=== PATIENT | female | born 1990 | race Hispanic/Latino ===

== ENCOUNTER → 2024-05-14 | Outpatient (CLI) | payer MEDICAID ==
[2024-05-14 10:17] LABS: BASOPHILS # (AUTO) 0.02 K/uL (0.00-0.20); BASOPHILS % (AUTO) 0.3 % (0.0-5.0); EOSINOPHILS # (AUTO) 0.18 K/uL (0.00-0.70); EOSINOPHILS % (AUTO) 2.6 % (0.0-8.0); HEMATOCRIT 39.4 % (36-48); IMMATURE GRANULOCYTE ABSOLUTE 0.03 K/uL (0-1); LYMPHOCYTES # (AUTO) 2.1 K/uL (1.0-4.8); LYMPHOCYTES % (AUTO) 29.4 % (21.0-51.0); MEAN CORPUSCULAR HEMOGLOBIN 24.2 pg (27.0-33.0); MEAN CORPUSCULAR HGB CONC 32.2 g/dL (32.0-36.0); MEAN CORPUSCULAR VOLUME 75.2 fL (79-99); MONOCYTES # (AUTO) 0.3 K/uL (0.1-1.0); MONOCYTES % (AUTO) 4.1 % (3.0-13.0); NEUTROPHILS # (AUTO) 4.4 K/uL (1.8-7.7); NEUTROPHILS % (AUTO) 63.2 % (40.0-77.0); PLATELET COUNT (AUTO) 253 K/uL (130-400); RED BLOOD CELL COUNT(AUTO) 5.24 MIL/uL (4.00-5.50); RED CELL DISTRIBUTION WIDTH 15.9 % (11.0-15.5)
[2024-05-14 10:27] LABS: HEMOGLOBIN A1C 9.9 % (4.0-6.0)
[2024-05-14 10:33] LABS: % IRON SATURATION 7.1 % (22-44)
[2024-05-14 10:57] LABS: ALBUMIN 3.3 g/dL (3.5-5.0); BILIRUBIN,TOTAL 0.2 mg/dL (0.2-1.0); CREATININE 0.5 mg/dL (0.5-1.0); POTASSIUM 3.7 mmol/L (3.5-5.1); THYROID STIMULATING HORMONE 0.8 uIU/mL (0.36-3.74); TOTAL PROTEIN, SERUM 7.7 g/dL (6.0-8.3)
== END | disposition home or self-care (01) ==
LOC: LAB 09:27
PROVIDERS: ATTEND Student in an Organized Health Care Education/Training Program
DX: E66.01 Morbid (severe) obesity due to excess calories (principal)
CPT/HCPCS: 36415; 80053; 80061; 82306; 82607; 82728; 83036; 83540; 83550; 84439; 84443; 84590; 85025

== ENCOUNTER → 2024-05-14 | Outpatient (CLI) | payer MEDICAID, OTHER ==
[~2024-05-14] VITALS: Ht 5.1 cm; Wt 98.0 kg
--- NOTE | 2024-05-14 12:19 | NUR ---
BARIATRIC INITIAL ASSESSMENT VISIT 1 OF 6 Wt: 216 lbs DOS: 05/14/24 Pt seeking bariatric procedure to aid in wt loss and improve medical health conditions. Pt reported she takes vit. D prescription, on brith control, no T2DM medication, brother and sister in law got procedure, struggled with wt since 13 yrs old, has tried diet + exercise to lose wt, dad's side struggle with wt, has 3 children, 2 are picky eaters, dx with T2DM last month, no BG checks, does not know last A1C result, has been seeing PCP more often, barely got medicaid, eats ~2 meals per day, rarely snacks, consumes soda 1 x per day, sweets 1x per day, fast food 3x per week, takes 10 min to eat, does not struggle with emotional eating or stress eating, does not struggle with anxiety or depression, plans to become in a few years, does not work, does not travel often, patient does the most cooking, has means to purchase healthy food with no issue, sleeps ~6 hrs per day, is able to exercise, does not exercise, goal wt of 150 lbs within [address] conducted 24 hr recall: Breakfast: skips Lunch: burger + fries + fruit punch drink Dinner: steak + entomatadas Snack(s): donut holes (4) RD reviewed portion sizes with pt, reviewed healthy plate, informed Pt of importance of protein intake, demonstrated DM chart, reviewed carbohydrate sources and carbohydrate counting, provided and an estimate for estimated carbohydrate intake per day. Pt completed wt management program diet readiness questionnaire. Results are as follows: Section 1: Goals and Attitudes. Score of 21. You may be close to being ready to begin a program but should think about ways to boost your preparedness before you begin. Sections 2: Hunger and Eating cues. Score 7. You may have a moderate tendency to eat just because food is available. Dieting may be easier for you if you try to resist external cues and eat only when you are physically hungry. Section 3: Control over Eating. Score 6. You recover rapidly from mistakes. However, if you frequently alternate between eating out of control and dieting strictly, you may have a serious eating problem and should get professional help. Section 4: Kiera Eating and Purging: Score 0. It appears that binge eating, and purging is not a problem for you. Section 5: Emotional Eating: Score 7. You do not appear to let your emotions affect your eating. Section 6: Exercise Patterns and Attitudes: Score 10. You are probably not exercising as regularly as you should. Determine whether your attitudes about exercise are blocking your way, then change what you must and put on those walking shoes. Goals Established: -MVI QD -decrease carbonation -walking 10 min 2x per week Pt in agreement with goals and is aware she will need to cut carbonated beverages, sweets and caffeine prior to surgery. Recommended for Pt to complete visits with Dietitian to prepare for bariatric procedure. Thank you for this visit. Addendum: 05/14/24 at [address] Amended: Links added.
== END | disposition home or self-care (01) ==
LOC: DTH 09:30
PROVIDERS: ATTEND Surgery
DX: I10 Essential (primary) hypertension (principal); M19.91 Primary osteoarthritis, unspecified site; K21.9 Gastro-esophageal reflux disease without esophagitis; E66.01 Morbid (severe) obesity due to excess calories; E11.9 Type 2 diabetes mellitus without complications; Z68.39 Body mass index [BMI] 39.0-39.9, adult; Z71.3 Dietary counseling and surveillance
CPT/HCPCS: 97802

== ENCOUNTER → 2024-06-04 | Outpatient (CLI) | payer OTHER ==
--- NOTE | 2024-06-04 09:47 | NUR ---
BARIATRIC FOLLOW UP NOTE VISIT 2 OF 6 Wt: 218 LBS DOS: 06/04/24 Upon follow up visit, pt presents with a 2 lb wt gain. Pt reported she recently got , water training, no MVI QD, cut down on soda, no SF products, no protein supplements, walking 15 min 3x per week, is going to set up an appointment with PCP, continues with vit. D prescription. RD conducted 24 hr food recall. Breakfast: eggs+ beans + sausage + toast+ orange juice Lunch: skipped Dinner: green pozole with chicken no snacks RD reviewed simple CHO and complex CHO intake, discussed labs, encouraged pt to decrease soft drink (even sugar free) consumption secondary to carbonation and caffeine, pt verbalized understanding. RD and pt established goals for next month: -no skipping meals -protein supplement qd -walking 25 min 3x per week Thank you for this visit Addendum: 06/04/24 at [address] Amended: Links added.
== END | disposition home or self-care (01) ==
LOC: EDUNIT# 09:00 → DTH 09:09
PROVIDERS: ATTEND Surgery
DX: E66.01 Morbid (severe) obesity due to excess calories (principal); I10 Essential (primary) hypertension; M19.91 Primary osteoarthritis, unspecified site; K21.9 Gastro-esophageal reflux disease without esophagitis; E11.9 Type 2 diabetes mellitus without complications
CPT/HCPCS: 97803

== ENCOUNTER → 2024-07-02 | Outpatient (CLI) | payer OTHER ==
--- NOTE | 2024-07-02 10:05 | NUR ---
BARIATRIC FOLLOW UP NOTE VISIT 3 OF 6 Wt: 216 LBS DOS: 07/02/24 Upon follow up visit, pt presents with a 2 lb wt loss. Pt with MVI QD, protein shakes, talked to PCP about labs, on vit. D prescribed, on metformin 1000mg, no BG checks, walking 1 x per week for 1 hr, decreased soda, water training, had not received information on T2DM, will look into SF tea options. RD conducted 24 hr food recall. Breakfast: skipped Lunch: fajita + brisk tea Dinner: lasagna + salad + brisk tea RD reviewed T2DM friendly snacks, discussed different SF beverages, discussed ways to lower BG levels, encouraged Pt to check BG, informed Pt on risks of uncontrolled T2DM , encouraged pt to decrease soft drink (even sugar free) consumption secondary to carbonation and caffeine, pt verbalized understanding. RD and pt established goals for next month: -all SF beverages -continue MVI QD -walking 2x per week for 1 hr Thank you for this visit Addendum: 07/02/24 at [address] Amended: Links added.
== END | disposition home or self-care (01) ==
LOC: EDUNIT# 09:00 → DTH 09:19
PROVIDERS: ATTEND Surgery
DX: E66.09 Other obesity due to excess calories (principal); I10 Essential (primary) hypertension; E11.9 Type 2 diabetes mellitus without complications; G47.33 Obstructive sleep apnea (adult) (pediatric); M19.91 Primary osteoarthritis, unspecified site; K21.9 Gastro-esophageal reflux disease without esophagitis; R63.4 Abnormal weight loss; Z71.3 Dietary counseling and surveillance; Z68.39 Body mass index [BMI] 39.0-39.9, adult
CPT/HCPCS: 97803

== ENCOUNTER → 2024-08-15 | Outpatient (CLI) | payer OTHER ==
--- NOTE | 2024-08-15 09:55 | NUR ---
BARIATRIC FOLLOW UP NOTE VISIT 4 OF 6 Wt: 213 LBS DOS: 08/15/24 Upon follow up visit, pt presents with a 3 lb wt loss. Pt with MVI QD, A1C 9, prescribed medication to stop sugar cravings, cut off carbonation, started using SF products, with MVI QD + prescribed vit. D, no exercise, just came back from vacation, did not expect wt loss, has had diarrhea for [address] conducted 24 hr food recall. Breakfast: skipped Lunch: protein shake Dinner: wings RD reviewed protein, calcium and vit. D, encouraged Pt to exercise and increase color in meals, reviewed protein,vit. D and calcium importance , encouraged pt to decrease soft drink (even sugar free) consumption secondary to carbonation and caffeine, pt verbalized understanding. RD and pt established goals for next month: -increase color in meals -walk 10 mins 3x per week -no skipping meals Thank you for this visit Addendum: 08/15/24 at [address] Amended: Links added.
== END ==
LOC: EDUNIT# 07-30 09:00 → DTH 09:11
PROVIDERS: ATTEND Surgery
DX: E66.09 Other obesity due to excess calories (principal); I10 Essential (primary) hypertension; E11.9 Type 2 diabetes mellitus without complications; G47.33 Obstructive sleep apnea (adult) (pediatric); M19.91 Primary osteoarthritis, unspecified site; K21.9 Gastro-esophageal reflux disease without esophagitis; Z68.39 Body mass index [BMI] 39.0-39.9, adult; Z71.3 Dietary counseling and surveillance
CPT/HCPCS: 97803

== ENCOUNTER → 2024-09-11 | Outpatient (CLI) | payer OTHER ==
--- NOTE | 2024-09-11 16:13 | NUR ---
BARIATRIC FOLLOW UP NOTE VISIT 5 OF 6 Wt: 210 LBS DOS: 09/11/24 Upon follow up visit, pt presents with a 3 lb wt loss. Pt reported she started a new medication and gets diarrhea right after eating, has a PCP visit next week, needs refill for vit. D prescription, has been trying protein supplements, does not check BG, no exercise due to it being too hot outside, MVI QD. RD conducted 24 hr food recall. Breakfast: skipped Lunch: chicken breast + rice + water Dinner: pork + beans + rice +water S: cucumber +jicama RD reviewed importance of vit.d and calcium, importance of protein, encouraged Pt to exercise indoors, discussed different ways to be more active, encouraged pt to decrease soft drink (even sugar free) consumption secondary to carbonation and caffeine, pt verbalized understanding. RD and pt established goals for next month: -continue MVI QD -walking 1x per week for ~20 mins -no skipping meals Thank you for this visit Addendum: 09/11/24 at [address] Amended: Links added.
== END | disposition home or self-care (01) ==
LOC: EDUNIT# 08-27 09:30 → DTH 15:23
PROVIDERS: ATTEND Surgery
DX: E66.09 Other obesity due to excess calories (principal); E66.3 Overweight; I10 Essential (primary) hypertension; E11.9 Type 2 diabetes mellitus without complications; M19.91 Primary osteoarthritis, unspecified site; K21.9 Gastro-esophageal reflux disease without esophagitis; G47.33 Obstructive sleep apnea (adult) (pediatric); Z68.39 Body mass index [BMI] 39.0-39.9, adult
CPT/HCPCS: 97803

== ENCOUNTER → 2024-10-15 | Outpatient (CLI) | payer MEDICAID ==
--- NOTE | 2024-10-15 10:36 | EKG ---
[facility] Test Date: 2024-10-15 Test Time: 10:11:52 Pat Name: BIRDIE CORBETT Department: LAB Room: Gender: F End [employer] Forming Department: [id number] : 1990 Requested By: FLOR NUÑEZ Order Number: [id number] Reading MD: Jame Powers Measurements Intervals [place] Rate: 65 P: 44 GA: 157 QRS: 44 QRSD: 90 T: 18 QT: 394 QTc: 410 Interpretive Statements Sinus rhythm No previous ECG available for comparison Electronically Signed On 10-15-2024 12:03:43 CDT by Jame Powers Please click the below link to view image of tracing.
[2024-10-15 10:42] LABS: IMMATURE GRANULOCYTE ABSOLUTE 0.02 K/uL (0-1); NUCLEATED RED BLOOD CELLS 0.0 % (0.0-0.19); PLATELET COUNT (AUTO) 247 K/uL (130-400); RED BLOOD CELL COUNT(AUTO) 4.31 MIL/uL (4.00-5.50); RED CELL DISTRIBUTION WIDTH 13.4 % (11.0-15.5); WHITE BLOOD COUNT (AUTO) 7.8 K/uL (4.8-10.8)
[2024-10-15 11:22] LABS: ASPARTATE AMINOTRANSFERASE 15 U/L (10-37); CREATININE 0.6 mg/dL (0.5-1.0); GLOMERULAR FILTR. RATE CALC 122 mL/min (>90); GLUCOSE,RANDOM 143 mg/dL (70-105); LDL DIRECT 90 mg/dL (0-99); SODIUM SERUM 137 mmol/L (136-145); TOTAL PROTEIN, SERUM 7.5 g/dL (6.0-8.3); UREA NITROGEN, BLOOD 9 mg/dL (7-18)
== END | disposition home or self-care (01) ==
LOC: LAB 09:27
PROVIDERS: ATTEND Surgery
DX: E66.01 Morbid (severe) obesity due to excess calories (principal); G47.33 Obstructive sleep apnea (adult) (pediatric); E11.9 Type 2 diabetes mellitus without complications; I10 Essential (primary) hypertension; M19.91 Primary osteoarthritis, unspecified site; Z68.30 Body mass index [BMI] 30.0-30.9, adult
CPT/HCPCS: 36415; 80053; 80061; 82306; 82607; 82746; 83036; 83540; 83735; 84207; 84425; 84436; 84443; 84446; 84481; 84590; 84630; 85025; 93005

== ENCOUNTER → 2024-10-15 | Outpatient (CLI) | payer OTHER ==
--- NOTE | 2024-10-15 10:44 | NUR ---
FOLLOW PRE-OP/POST-OP DIETARY RECOMMENDATIONS BARIATRIC PRE-OP VISIT VISIT 6 OF 6 Wt:206 lbs DOS: 10/15/24 Child present during visit. Upon follow up visit, pt presented with a 4 lb wt loss. Pt reported she will get procedure date this week, expected wt loss, cut off bread, soda, and sweets, MVI QD, has not purchased bariatric MVI, has been walking 15 min 2x per week. RD reviewed educational material for pre-op and post-op diet recommendations with detailed phases of diet post-op. Pt was informed of importance of lifelong vitamin/mineral supplementation, choosing protein first during meals (pt was educated on higher protein requirements), choosing low calorie, sugar free, carbonated free and caffeine beverages. RD also informed pt on lifelong commitment to exercise and dietary recommendations for optimal success post surgery. RD encouraged getting blood work every 3 to 6 months, including B-vitamins, Pt verbalized understanding. RD informed Pt on moving around after procedure to prevent DVT, Pt verbalized understanding. Pt was encouraged to contact RD as questions arise and to attend support groups. RD provided protein supplement recommendations along with Bariatric Vitamin recommendations via graphics to patient. Pt with several questions, all of which were answered. Fair to poor compliance suspected. Pt will benefit from outpatient bariatric dietitian follow up post procedure. Pt to follow up with PCP for labs. Thank you for this visit. Addendum: 10/15/24 at [address] Amended: Links added.
== END | disposition home or self-care (01) ==
LOC: EDUNIT# 09-24 09:00 → DTH 09:35
PROVIDERS: ATTEND Surgery
DX: G47.33 Obstructive sleep apnea (adult) (pediatric) (principal); E78.5 Hyperlipidemia, unspecified; M19.91 Primary osteoarthritis, unspecified site; I10 Essential (primary) hypertension; K21.9 Gastro-esophageal reflux disease without esophagitis; E66.01 Morbid (severe) obesity due to excess calories; E11.9 Type 2 diabetes mellitus without complications; Z68.32 Body mass index [BMI] 32.0-32.9, adult
CPT/HCPCS: 97803

== ENCOUNTER 2024-11-09 15:25 | Emergency (ER) | payer MEDICAID ==
[~2024-11-09] VITALS: Ht 160 cm; Wt 87.1 kg
[~2024-11-09 15:25] MED LIST: FERS325 PO; HYDR12.54 PO; LOSA50TA64 PO; METF-446 PO; MVIT PO; NORE-8 PO
[2024-11-09 15:27] VITALS: TEMP 98.2
[2024-11-09 16:16] LABS: IMMATURE GRANULOCYTE ABSOLUTE 0.03 K/uL (0-1); NUCLEATED RED BLOOD CELLS 0.0 % (0.0-0.19); PLATELET COUNT (AUTO) 292 K/uL (130-400); RED BLOOD CELL COUNT(AUTO) 4.63 MIL/uL (4.00-5.50); RED CELL DISTRIBUTION WIDTH 13.7 % (11.0-15.5); WHITE BLOOD COUNT (AUTO) 8.9 K/uL (4.8-10.8)
[2024-11-09 16:17] LABS: APPEARANCE,URINE CLEAR (CLEAR); GLUCOSE, URINE (UA) NEGATIVE (NEGATIVE); LEUKOCYTE ESTERASE ,URINE NEGATIVE Leu/uL (NEGATIVE); NITRATE,URINE NEGATIVE (NEGATIVE); OCCULT BLOOD,URINE NEGATIVE (NEGATIVE)
[2024-11-09 16:18] LABS: ADD UA MICROSCOPIC YES
[2024-11-09 16:21] LABS: SQUAMOUS EPITHELIAL CELL,UR FEW /HPF (0-2)
[2024-11-09 16:22] LABS: CREATININE 0.5 mg/dL (0.5-1.0); GLOMERULAR FILTR. RATE CALC 128.0 mL/min (>90); GLUCOSE,RANDOM 92.0 mg/dL (70-105); SODIUM SERUM 139.0 mmol/L (136-145); UREA NITROGEN, BLOOD 9.0 mg/dL (7-18)
[2024-11-09] MEDS: PoTASSium chl 10% ELIXIR 20MEQ 20 MEQ/15 ML UDCUP PO ONE ×2 (16:44→16:49)
--- NOTE | 2024-11-09 16:47 | NUR ---
POTASSIUM 2.7, 40 MEQ OF POTASSIUM ELIXIR GIVEN NOW
[2024-11-09] MEDS: 0.9%NACL 1000ML 1,000 ML IV ONE (17:32)
[2024-11-09] MEDS ORDERED: LEVO750T90 PO (17:38)
--- NOTE | 2024-11-09 17:38 | ERN ---
ED Note History of Present Illness Stated Complaint: SUTURE PROBLEM Chief Complaint: Wound Recheck/Suture Removal Time Seen by MD: 15:37 Dictation: This is a 34-year-old female who presented to the emergency room with complaints of bleeding from the site of surgery which started today. Patient underwent laparoscopic gastric sleeve surgery by Dr. Powers and was discharged on 11/07 2024. She has been recovering very well postoperatively and noticed today that from and a of 1 of the laparoscopic sites the right lateral abdominal wall was oozing blood. She denied any fever chills or rigors she basically came into the ER to get her surgical wound checked out Temperature 98.2 pulse 72 respirations 18 blood pressure 164/74 with a pulse oximetry of 99% on room air Her chronic medical problems include diabetes mellitus, hypertension and morbid obesity Allergies: Coded Allergies: Penicillins (Unverified Allergy, Unknown, 11/04/24) Home Meds Active Scripts Levofloxacin (Levofloxacin) 750 Mg Tablet, 1 TAB PO DAILY for 5 Days, #5 TAB 0 Refills Prov:ARIANA MELENDEZ MD 11/09/24 Reported Medications Hydrochlorothiazide (Hydrochlorothiazide) 12.5 Mg Tablet, 12.5 MG PO DAILY, TAB 11/04/24 Metformin HCl (Metformin HCl) 1,000 Mg Tablet, 1000 MG PO DAILY, TAB 11/04/24 Noreth A-Et Estra/Fe Fumarate (Lo Loestrin Fe 1-10 Tablet) 1MG-10(24) Tablet, 1 EACH PO HS, TAB 11/04/24 Multivitamins,Therapeutic (Multivitamin Tablet) 400 Mcg Tab, 1 TAB PO DAILY, TAB 11/04/24 Ferrous Sulfate (Ferrous Sulfate) 325 Mg (65 Mg Iron) Ectab, 325 MG PO DAILY, TAB.EC 11/04/24 Losartan Potassium (Losartan Potassium) 50 Mg Tablet, 50 MG PO DAILY, TAB 11/04/24 Discontinued Reported Medications Phentermine HCl (Phentermine HCl) 15 Mg Capsule, 15 MG PO DAILY, CAP 11/04/24 Past Medical History Past Medical History: Diabetes-Type II, Hypertension Surgical History: Other (Sleeve gastrectomy-laparoscopic October 2024) Family History: Negative Social History: Negative RN Note Reviewed/Agreed w/PFSH: Yes Review of System Dictation Constitutional: Negative for fever,chills, and weight loss Eyes: Negative for injury, pain,redness, and discharge ENT: Negative for injury,pain or swelling Cardiovascular: Negative for chest pain, palpitations, and edema Respiratory: Negative for shortness of breath, cough, and wheezing, Abdomen/GI: Negative for abdominal pain, nausea, vomiting, diarrhea, and constipation Back: Negative for injury and pain : Negative for injury, bleeding and discharge MS/Extremity: Negative for injury and deformity Skin: Negative for rash, and discoloration-drainage and bleeding from surgical wound Neuro: Negative for headache, weakness, numbness, tingling, and seizure Psych: Negative for suicide ideation, homicidal ideation, and hallucinations Initial Vital Sign VS Vital Signs Date Time Temp Pulse Resp B/P (MAP) Pulse Ox O2 Delivery O2 Flow Rate FiO2 11/09/24 15:27 98.2 72 18 164/74 99 11/09/24 18:00 Room Air* 0 21 Physical Exam Dictation General: awake, alert, NAD Head/Face: Normocephalic, atraumatic Eyes: PERRL, EOMI, vision at baseline ENT: oral cavity clear, TMs clear, no signs of infection Neck: Trachea midline, supple, no nuchal rigidity Cardiovascular: RRR, normal S1/S2, No MRGs, no JVD Respiratory: CTAB, no respiratory distress, No rales or wheezes Abdomen: Soft, non-tender, non-distended, normal bowel sounds, no guarding or rebound. Abdominal wall has multiple laparoscopic insertion sites which are healing at different stages. About 2 in surgical wound on the right lateral abdominal wall had a scab small amount of oozing and surrounding erythema and mild induration. Skin: Warm, dry, normal turgor, no rash MS/Extremity: Pulses equal, no cyanosis, neurovascular intact, FROM Neuro: COAx4, GCS 15, strength 5/5, CN 2-12 intact, normal cerebellar exam, normal gait, Psych: Normal behavior, mood, and affect normal Extremities-trace edema without any palpable cords, Homans sign is negative Results (Laboratory/Radiology) Laboratory/Radiology Laboratory Tests Test 11/09/24 16:00 11/09/24 16:07 Urine Color YELLOW (YELLOW) Urine Appearance CLEAR (CLEAR) Urine pH 6.5 (5.0-8.0) Urine Specific [place] 1.036 (1.001-1.031) Urine Protein 70 mg/dL (NEGATIVE) H Urine Glucose (UA) NEGATIVE mg/dL (NEGATIVE) Urine Ketones 150 mg/dL (NEGATIVE) H Urine Occult Blood NEGATIVE (NEGATIVE) Urine Nitrate NEGATIVE (NEGATIVE) Urine Bilirubin 1 mg/dL (NEGATIVE) H Urine Urobilinogen 4.0 mg/dL (0.2-1.0) H Urine Leukocyte Esterase NEGATIVE [place]/uL Urine RBC 0-1 /HPF (0-1) Urine WBC 0-1 /HPF (0-1) Urine Squamous Epithelial Cells FEW /HPF (0-2) Urine Bacteria RARE /HPF (None Seen) White Blood Count 8.9 K/uL (4.8-10.8) Red Blood Count 4.63 MIL/uL (4.00-5.50) Hemoglobin 13.9 g/dL (12.0-16.0) Hematocrit 39.3 % (36-48) Mean Corpuscular Volume 84.9 fL (79-99) Mean Corpuscular Hemoglobin 30.0 pg (27.0-33.0) Mean Corpuscular Hemoglobin Concent 35.4 g/dL (32.0-36.0) Red Cell Distribution Width 13.7 % (11.0-15.5) Platelet Count 292 K/uL (130-400) Mean Platelet Volume 11.0 fL (7.5-10.5) H Immature Granulocyte % (Auto) 0.3 % (0-1) Neutrophils (%) (Auto) 66.5 % (40.0-77.0) Lymphocytes (%) (Auto) 26.9 % (21.0-51.0) Monocytes (%) (Auto) 4.8 % (3.0-13.0) Eosinophils (%) (Auto) 1.2 % (0.0-8.0) Basophils (%) (Auto) 0.3 % (0.0-5.0) Neutrophils # (Auto) 5.9 K/uL (1.8-7.7) Lymphocytes # (Auto) 2.4 K/uL (1.0-4.8) Monocytes # (Auto) 0.4 K/uL (0.1-1.0) Eosinophils # (Auto) 0.11 K/uL (0.00-0.70) Basophils # (Auto) 0.03 K/uL (0.00-0.20) Absolute Immature Granulocyte (auto 0.03 K/uL (0-1) Nucleated Red Blood Cells 0.0 % (0.0-0.19) Sodium Level 139 mmol/L (136-145) Potassium Level 2.7 mmol/L (3.5-5.1) *L Chloride Level 104 mmol/L (101-111) Carbon Dioxide Level 25 mmol/L (21-32) Blood Urea Nitrogen 9 mg/dL (7-18) Creatinine 0.5 mg/dL (0.5-1.0) Glomerular Filtration Rate Calc 128 mL/min (>90) Random Glucose 92 mg/dL (70-105) Total Calcium 9.0 mg/dL (8.5-10.1) Labs Reviewed?: Yes ED Course ED Course Orders Procedure Category Date Status Time Cbc With Differential LAB 11/09/24 Complete 15:40 Basic Metabolic Panel LAB 11/09/24 Complete 15:40 Urinalysis Profile LAB 11/09/24 Complete 15:40 Potassium Chl 10% PHA 11/09/24 Complete Elixir 20meq (Kcl 10% 17:00 Potassium Chl 10% PHA 11/09/24 Complete Elixir 20meq (Kcl 10% 17:00 0.9%Nacl 1000ml (Ns PHA 11/09/24 Complete 1000ml) 17:30 Morphine 4mg Syg PHA 11/09/24 Complete (Morphine 4mg Syg) 18:00 Levofloxacin 750mg PHA 11/09/24 In Process Tab (Levaquin 750mg T 18:00 Current Medications Medications (Trade) Dose Ordered Sig/Ciro Route PRN Reason Start Time Stop Time Status Last Admin Dose Admin Levofloxacin (LEvaquIN 750MG TAB) 750 mg ONCE PO 11/09/24 18:00 11/19/24 17:59 11/09/24 17:59 Morphine Sulfate (morPHINE 4MG SYG) 4 mg ONCE ONCE IVP 11/09/24 18:00 11/09/24 18:01 DC 11/09/24 17:59 Potassium Chloride (KCl 10% Elixir 20meq/15ml) 20 meq ONCE ONCE PO 11/09/24 17:00 11/09/24 17:01 DC 11/09/24 16:44 Potassium Chloride (KCl 10% Elixir 20meq/15ml) 20 meq ONCE ONCE PO 11/09/24 17:00 11/09/24 17:01 DC 11/09/24 16:49 Sodium Chloride 1,000 ml @ 0 mls/hr ONCE ONCE IV 11/09/24 17:30 11/09/24 17:31 DC 11/09/24 17:32 Vital Signs Date Time Temp Pulse Resp B/P (MAP) Pulse Ox O2 Delivery O2 Flow Rate FiO2 11/09/24 18:00 63 18 131/83 100 Room Air* 0 21 11/09/24 15:27 98.2 72 18 164/74 99 We will perform diagnostic labs,and administer medications according to the patient's complaint. Once the results are available, will review and personally interpreted the labs to rule out any acute life-threatening emergency the trach require immediate intervention and treatment. I will then re-evaluate the patient after treatment and diagnostic exams have return to determine whether the patient requires any further testing, can safely be discharged home or need further admission to hospital for additional treatment and evaluation. Reviewed labs CBC is with a normal limits BNP 7 showed a potassium of 2.7. Urinalysis showed ketones and protein but no evidence of any UTI. Had a long discussion with the patient and her brother who was at bedside. We will hydrate and replete potassium aggressively. It would be reasonable to give her antibiotics for 5-7 days and she is agreeable She will follow up with Dr. Powers, general surgeon as outpatient Medical Decision Making MDM MDM: Differential diagnosis: Postop wound bleeding-possibly from infection, bleeder venous, accidental dislodgement of the scab Rationale: Tests considered and ordered secondary to shared decision making include: Previous outside records reviewed: Old ER visits. Risk of complication and/or morbidity or mortality of patient management: None Medications-Per medication reconciliation Need for hospitalization: Patient does not meet criteria for hospitalization. Need for emergency major/minor surgery: No There are no social concerns with this patient. Prescription drug management Prescriptions will include symptomatic care Patient's prior external medical records from other ER visits were reviewed by me as indicated. Prior testing and results from previous visits were reviewed. Prior tests were taken into account with medical decision making and resource utilization, independent historian/historians were used to obtain complete medical history. I independently interpreted the test that were performed, results were reviewed by me and considered findings on radiology if ordered. Medical management and examination interpretation discussions were had by me with other qualified healthcare professionals as indicated for the patient's care. Problem List Problem List: (1) Postoperative wound infection (2) Status post laparoscopic sleeve gastrectomy (3) Diabetes mellitus (4) Hypertension (5) Hypokalemia DX & DISP Disposition: Discharge Departure Impression: Primary Impression: Postoperative wound infection Additional Impressions: Status post laparoscopic sleeve gastrectomy, Diabetes mellitus, Hypertension, Hypokalemia Condition: Stable Scripts Levofloxacin (Levofloxacin) 750 Mg Tablet 1 TAB PO DAILY for 5 Days, #5 TAB 0 Refills Prov: ARIANA MELENDEZ MD 11/09/24 Additional Instructions: Patient and the caregiver have been informed of all the diagnostic tests and the imaging conducted during the today's visit to the emergency room and has verbalized understanding of the results I have personally reviewed and interpreted all diagnostic exams performed here in the ER today as well as the vital signs documented by the nursing staff. The patient is now being discharged to home and should follow up with the primary care physician or the specialist as directed by the ER staff. Follow-up with primary care provider in 1 to 2 days. Take medications as directed here in the emergency room. Okay to continue home medications unless otherwise discussed during your visit in the emergency room today. Return to your nearest emergency room if symptoms worsen or if there is no improvement. Call 911 if you need immediate assistance. Take Tylenol or Motrin [id number] as needed and if no contraindications are present. Increase oral hydration. A wound culture or urine culture was ordered here in the emergency room department please follow-up with primary care provider and advise them to get repeat ports from our facility. If you had any Christian wrap/splints that were applied here, please do not remove them until you see your primary care or specialty. Referrals: VALERIE PATEL MD (PCP) ARIANA MELENDEZ MD Nov 09, 2024 17:38
[2024-11-09 18:00] VITALS: BP 131/83; PULSE 63; RESP 18; O2SAT 100
== END 2024-11-09 18:48 | disposition home or self-care (01) ==
LOC: EDH 15:25
DX: T81.49XA Infection following a procedure, other surgical site, initial encounter (principal); E11.9 Type 2 diabetes mellitus without complications; I10 Essential (primary) hypertension; Z79.84 Long term (current) use of oral hypoglycemic drugs; Z79.899 Other long term (current) drug therapy; Z88.0 Allergy status to penicillin
CPT/HCPCS: 99284; 96374; 80048; 85025; 81001; 36415; J7030; J2270